=== PATIENT | female | born 1990 | race Caucasian/White ===

== ENCOUNTER 2020-08-23 17:45 | Inpatient (IN) | payer MEDICAID, SELFPAY ==
[2020-08-23 17:50] VITALS: BP 126/81; PULSE 128; RESP 14; TEMP 36.8; O2SAT 98; BMI 32.9
--- NOTE | 2020-08-23 18:06 | W.ED.PSYCH ---
HPI - Psych General: Chief Complaint: Psychiatric Symptoms Stated Complaint: SI Time Seen by Provider: 08/23/20 18:00 History of Present Illness: HPI Narrative: Patient has history of alcohol abuse and drinks on a daily basis fell off the wagon she said this Monday been drinking and doing some drugs. Said she tried to hang herself with a close line that was in her bedroom/laundry room yesterday then she said she is going to cut herself at night and try to bleed to no miller noticed on her neck even though she said this further occurred at. Says she is depressed she said life is just not going well family think finances everything she just feels down out and does not want living more children were taken away from her she had 2 kids to develop with her dad and she misses them MD complaint: suicidal ideation and feels depressed Onset (ago): day(s) Duration: constant and getting worse History of same: Yes Relieving factors: none Exacerbating factors: alcohol and drug use Context: recent alcohol abuse and recent drug abuse Associated psychiatric symptoms: depression and suicidal ideation Associated symptoms: Reports depression and suicidal ideation If self harm: admits thoughts of self harm, has plan and has acted on plan Review of Systems Const: Denies: fever(s), chills or body aches Eyes: Denies: change in vision or blurry vision ENMT: Denies: throat pain or nasal congestion Card: Denies: chest pain or dyspnea on exertion Resp: Denies: dyspnea, productive cough or non-productive cough GI: Denies: abdominal pain, nausea or vomiting Musc: Denies: extremity pain Skin/Breast: Denies: rash Neuro: Denies: headache(s) Psych: Reports: depression, hopelessness, suicidal ideation and other (Try to hang herself yesterday and said she was going to cut her throat but she did not) Carlos/Lymph: Denies: easy bruising PFSH ED PFSH: Family History (Updated 12/20/19 @ 12:03 by Emely Villafuerte RN) Father , 31 No problems noted. Social History (Updated 12/20/19 @ 12:04 by Emely Villafuerte RN) Smoking and tobacco status: current every day smoker cigarettes Alcohol intake: never Marital status: Single Current occupational status: employed Physical Exam Const: COMMON NORMALS: no acute distress, average body habitus and patient oriented x3 HENMT: COMMON NORMALS: normocephalic HEAD & SCALP: normal to inspection and normocephalic FACE & SINUS: normal facial exam Eye: COMMON NORMALS: conjunctivae normal GENERAL EYE: appearance normal, both eyes and all related structures CONJUNCTIVA: Yes conjunctivae normal Neck/C-Spine: COMMON NORMALS: no JVD Chest: COMMONS NORMALS: normal inspection of the chest Resp: COMMON NORMALS: normal respiratory effort and clear to auscultation bilaterally AUSCULTATION: clear to auscultation bilaterally Cardio: COMMON NORMALS: no JVD, regular rate and regular rhythm RATE: regular rate RHYTHM: regular rhythm GI: COMMON NORMALS: Normal to inspection, nondistended, normoactive bowel sounds present Extremity: COMMON NORMALS: normal to inspection and full ROM Neuro: COMMON NORMALS: patient oriented x3 Psych: COMMON NORMALS: mental status grossly normal, Normal thought process present and speech normal APPEARANCE: Yes grossly normal ATTITUDE: Yes calm SPEECH: Yes normal speech MOOD & AFFECT: Yes depressed mood THOUGHT PROCESS: Normal thought process present THOUGHT CONTENT: Yes Suicidality present MEMORY/COGNITION: Yes memory grossly intact INSIGHT: Good insight present (Psych) JUDGEMENT: Good judgement present (Psych) MDM - Psych MDM Narrative: Medical decision making narrative: Dr. Miller agrees to admit patient Lab Data: Labs: Lab Results 08/23/20 08/23/20 08/23/20 Range/Units 18:22 18:22 19:05 WBC 11.4 H (4.0-10.0) 10^3/ uL RBC 4.74 (4.1-5.3) 10^6/u L Hgb 14.9 (11.5-15.3) g/dL Hct 43.2 (37.0-47.0) % MCV 91.1 (81-99) fL MCH 31.4 (28.0-34.0) pg MCHC 34.5 (30.0-36.0) g/dL RDW 12.2 (12.1-15.1) % Plt Count 302 (130-400) 10^3/c mm MPV 9.2 (7.4-10.4) fL Neut % (Auto) 70.2 % Lymph % (Auto) 20.6 % [place] % (Auto) 7.3 % Eos % (Auto) 1.2 % Baso % (Auto) 0.4 % Neut # (Auto) 8.02 H (1.8-7.7) 10^3/u L Lymph # (Auto) 2.4 (0.8-4.8) 10^3/u L [place] # (Auto) 0.8 (0.2-0.9) 10^3/u L Eos # (Auto) 0.1 (0.0-0.8) 10^3/u L Baso # (Auto) 0.1 (0.0-0.1) 10^3/u L Nucleated RBC % (a uto) 0 % Nucleated RBCs # 0.0 /100WBC Sodium (136-145) mmol/L Potassium (3.5-5.1) mmol/L Chloride (98-107) mmol/L Carbon Dioxide (22-29) mmol/L Anion Gap (5-19) BUN (6-20) mg/dL Creatinine (0.5-0.9) mg/dL GFR Calculation (90-130) mL/min Glucose (65-115) mg/dL Calculated Osmolal ity (285-295) mOsm/k g Calcium (8.5-10.5) mg/dL Total Bilirubin (0.15-1.2) mg/dL AST (0-32) U/L ALT (0-33) U/L Alkaline Phosphata se (35-105) IU/L Total Protein (6.6-8.7) g/dL Albumin (3.5-5.2) g/dL Globulin (1.3-4.6) g/dL HCG, Qual Negative (Negative) Salicylates (3-10) mg/dL Urine Opiates Scre en Negative (Negative) ng/mL Acetaminophen (10-30) ug/mL Ur Barbiturates Sc reen Negative (Negative) ng/mL Ur Phencyclidine S crn Negative (Negative) ng/mL Ur Amphetamines Sc reen Negative (Negative) ng/mL U Benzodiazepines Scrn Negative (Negative) ng/mL Urine Cocaine Scre en Negative (Negative) ng/mL U Marijuana (THC) Screen Negative (Negative) ng/mL Ethyl Alcohol (0-10) mg/dL 08/23/20 Range/Units 19:05 WBC (4.0-10.0) 10^3/ uL RBC (4.1-5.3) 10^6/u L Hgb (11.5-15.3) g/dL Hct (37.0-47.0) % MCV (81-99) fL MCH (28.0-34.0) pg MCHC (30.0-36.0) g/dL RDW (12.1-15.1) % Plt Count (130-400) 10^3/c mm MPV (7.4-10.4) fL Neut % (Auto) % Lymph % (Auto) % [place] % (Auto) % Eos % (Auto) % Baso % (Auto) % Neut # (Auto) (1.8-7.7) 10^3/u L Lymph # (Auto) (0.8-4.8) 10^3/u L [place] # (Auto) (0.2-0.9) 10^3/u L Eos # (Auto) (0.0-0.8) 10^3/u L Baso # (Auto) (0.0-0.1) 10^3/u L Nucleated RBC % (a uto) % Nucleated RBCs # /100WBC Sodium 137 (136-145) mmol/L Potassium 3.3 L (3.5-5.1) mmol/L Chloride 100 (98-107) mmol/L Carbon Dioxide 24 (22-29) mmol/L Anion Gap 16.3 (5-19) BUN 9 (6-20) mg/dL Creatinine 0.6 (0.5-0.9) mg/dL GFR Calculation 118.2 (90-130) mL/min Glucose 107 (65-115) mg/dL Calculated Osmolal ity 283 L (285-295) mOsm/k g Calcium 9.1 (8.5-10.5) mg/dL Total Bilirubin 0.3 (0.15-1.2) mg/dL AST 13 (0-32) U/L ALT 24 (0-33) U/L Alkaline Phosphata se 84 (35-105) IU/L Total Protein 7.4 (6.6-8.7) g/dL Albumin 4.5 (3.5-5.2) g/dL Globulin 2.9 (1.3-4.6) g/dL HCG, Qual (Negative) Salicylates < 0.3 L (3-10) mg/dL Urine Opiates Scre en (Negative) ng/mL Acetaminophen < 5.0 L (10-30) ug/mL Ur Barbiturates Sc reen (Negative) ng/mL Ur Phencyclidine S crn (Negative) ng/mL Ur Amphetamines Sc reen (Negative) ng/mL U Benzodiazepines Scrn (Negative) ng/mL Urine Cocaine Scre en (Negative) ng/mL U Marijuana (THC) Screen (Negative) ng/mL Ethyl Alcohol < 10 (0-10) mg/dL Discharge Plan Discharge Patient Disposition: Admitted As Inpatient Admit Provider: Paul Miller Condition: Good Discharge Date/Time: 08/23/20 20:14 Coding Level of Care Code 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
[2020-08-23 18:30] LABS: HCG Qualitative Urine. Negative (Negative)
[2020-08-23 18:38] LABS: Amphetamines Screen Urine Negative (Negative); Barbiturates Screen Urine Negative (Negative); Benzodiazepines Screen Urine Negative (Negative); Cocaine Screen Urine Negative (Negative); Opiate Screen Urine Negative (Negative); PCP Screen Urine Negative (Negative); THC Screen Urine Negative (Negative)
[2020-08-23 19:09] LABS: Basophils # 0.1 10^3/uL (0.0-0.1); Basophils % 0.4 %; Eosinophils # 0.1 10^3/uL (0.0-0.8); Eosinophils % 1.2 %; Hematocrit 43.2 % (37.0-47.0); Hemoglobin 14.9 g/dL (11.5-15.3); Lymphocytes # 2.4 10^3/uL (0.8-4.8); Lymphocytes % 20.6 %; Mean Corpuscular HGB Conc 34.5 g/dL (30.0-36.0); Mean Corpuscular Hemoglobin 31.4 pg (28.0-34.0); Mean Corpuscular Volume 91.1 fL (81-99); Mean Platelet Volume 9.2 fL (7.4-10.4); Monocytes # 0.8 10^3/uL (0.2-0.9); Monocytes % 7.3 %; Neutrophils # 8.02 10^3/uL (1.8-7.7); Neutrophils % 70.2 %; Nucleated Red Blood Cells % 0 %; Platelet Count 302 10^3/cmm (130-400); Red Blood Count 4.74 10^6/uL (4.1-5.3); Red Cell Distribution Width 12.2 % (12.1-15.1); White Blood Count 11.4 10^3/uL (4.0-10.0)
[2020-08-23 19:29] LABS: Alanine Aminotransferase 24 U/L (0-33); Albumin Level 4.5 g/dL (3.5-5.2); Alkaline Phosphatase 84 IU/L (35-105); Anion Gap 16.3 (5-19); Aspartate Amino Transferase 13 U/L (0-32); Blood Urea Nitrogen 9 mg/dL (6-20); Calcium 9.1 mg/dL (8.5-10.5); Carbon Dioxide 24 mmol/L (22-29); Chloride 100 mmol/L (98-107); Creatinine Clr Calc Pharmacy 136.9796; Globulin 2.9 g/dL (1.3-4.6); Glomerular Filtration Rate 118.2 mL/min (90-130); Glucose 107 mg/dL (65-115); Osmolality Calculated 283 mOsm/kg (285-295); Potassium 3.3 mmol/L (3.5-5.1); Sodium 137 mmol/L (136-145); Total Bilirubin 0.3 mg/dL (0.15-1.2); Total Protein 7.4 g/dL (6.6-8.7)
[2020-08-23 19:34] LABS: Acetaminophen < 5.0 ug/mL (10-30); Alcohol Level < 10 mg/dL (0-10); Salicylate < 0.3 mg/dL (3-10)
[2020-08-23 19:41] VITALS: BP 102/71; PULSE 93; RESP 17; TEMP 36.8; O2SAT 100
[2020-08-23] MEDS: potassium chloride ER 10 mEq Tablet 20 MEQ PO (19:55)
[2020-08-23 20:12] VITALS: BP 122/76; PULSE 110; RESP 16; O2SAT 98
[2020-08-23] MEDS: hyDROXYzine 25 mg Capsule 50 MG PO (21:01)
[2020-08-23] MEDS: trazodone 50 mg Tablet PO (21:01)
--- NOTE | 2020-08-23 21:13 | PC.NURSE ---
Pt requested medications for sleep and anxiety. Trazodone and Vistaril given per request.
[2020-08-23 22:00] VITALS: TEMP 36.8
[2020-08-24 05:55] VITALS: BP 106/72; PULSE 84; RESP 17; TEMP 36.5; O2SAT 97
--- NOTE | 2020-08-24 07:33 | P.HP_ITS ---
Providers/Chief Complaint Admitting Physician: Paul Miller Primary Care Provider: Aba Butterfield MD Chief Complaint: ASKING TO GO TO NPU HPI NPU History of Present Illness Darling Sotelo is a 29 year old female with a history of alcohol abuse. She had previously been drinking on a daily basis but sobered up on her own. The problem is, with COVID, she was sitting in her apartment with nobody to talk to and that got pretty mtz after a while. She fell off the wagon and had been drinking and doing some drugs, although her urine shows no positives. She said she tried to hang herself on Monday with a clothes line that was in her laundry room and then she was going to cut herself in the neck and try to bleed to . No miller are noticed on her neck even though she said this occurred at home. She is depressed and said life is just not going well with her family and finances, just everything. She simply feels down out and does not want to go on living any more. Children were taken away from her although there is been no legal resolution of this (divorce). She had grown up with 2 stepsisters and her dad and she misses them. As for CAGE questions, she tried to cut down, there is no one to argue with about her drinking, about which she feels very guilty, which pretty much is considered positive for females, who only require one positive answer. 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 Review of Systems Narrative: Const: Denies: fever(s), chills or body aches Eyes: Denies: change in vision or blurry vision ENMT: Denies: throat pain or nasal congestion Card: Denies: chest pain or dyspnea on exertion Resp: Denies: dyspnea, productive cough or non-productive cough GI: Denies: abdominal pain, nausea or vomiting Musc: Denies: extremity pain Skin/Breast: Denies: rash Neuro: Denies: headache(s) Psych: Reports: depression, hopelessness, suicidal ideation and other (Try to hang herself yesterday and said she was going to cut her throat but she did not) Carlos/Lymph: Denies: easy bruising Meds NPU Home Medications Medication Instructions Recorded Confirmed Last Taken Type acetaminophen [Tylenol] 650 mg PO QID PRN 08/23/20 08/23/20 Unknown History diphenhydramine-acetaminophen 1 tab PO BEDTIME PRN 08/23/20 08/23/20 Unknown History [Tylenol PM Extra Strength] Allergies Allergy/AdvReac Type Severity Reaction Status Date / Time No Known Allergies Allergy Unverified 12/20/19 11:59 PFSH NPU PFSH: Medical History (Updated 08/24/20 @ 08:23 by Paul Miller) Major depression Family History (Updated 12/20/19 @ 12:03 by Emely Villafuerte RN) Father , 31 No problems noted. Social History (Updated 12/20/19 @ 12:04 by Emely Villafuerte RN) Smoking and tobacco status: current every day smoker cigarettes Alcohol intake: never Marital status: Single Current occupational status: employed Other Psychiatric History: Other Psychiatric History: The patient says she has had episodes with alcoholism and has thought about suicide but was never treated for depression nor has she ever been on any pharmacotherapy or hospitalized. Mental Status Exam MSE Comments: The patient is a 29-year-old female who presents at her stated age. Mood is sad and affect is dysphoric, often tearful. Thought processes, however, are integrated and free of any racing, blocking or looseness of association. There is no evidence of psychosis, such as but not limited to hallucinations, delusions or ideas of reference. Speech is of normal rate and volume, without dysarthria, aprosody or pressure. The patient acknowledges suicidal ideation but has no homicidal ideation, plan or intent. Cognitive functions are intact, with memory orientation and reason functioning well. Insight and judgment are actually better than one might expect. She has no denial about her drinking. Vitals/I&O/Wt Last Vital Signs Temp 97.7 F 08/24/20 05:55 Pulse 84 08/24/20 05:55 Resp 17 08/24/20 05:55 BP 106/72 08/24/20 05:55 Pulse Ox 97 08/24/20 05:55 Weight last 48 hrs Weight 180 lb Physical Exam Narrative: EXAM NARRATIVE: Const: no acute distress, average body habitus and patient oriented x3 HENMT: normal to inspection, normocephalic and atraumatic. Normal facial exam Eye: conjunctivae normal. PERRLA. EOMs intact. Neck/C-Spine: no JVD. Full range of motion and flexion Chest: normal inspection of the chest Resp: normal respiratory effort and clear to auscultation bilaterally Cardio: no JVD, regular rate and regular rhythm GI: Normal to inspection, non-distended, normoactive bowel sounds Extremity: normal to inspection and full ROM Neuro: Patient oriented x3. No cerebellar, sensory or motor deficit noted. Data NPU : 08/23/20 19:05 08/23/20 19:05 A&P Assessment and plan (1) Alcoholism: I have staffed the patient with nursing and discharge planning staff. Referral to rehab will be undertaken. Status: Acute (2) Major depression: Pharmacotherapy will be invoked. Millieu therapy and discharge planning will also be undertaken Status: Acute Involuntary Hold Information 96 Hour Hold: 96 Hour Involuntary Admission: No Attestations NPU Medical Necessity Statement*: I anticipate 5-7 midnights additional stay. Time Spent in Patient Care: Greater than 35 minutes (>than 50% of time spent in counselling and/or direct pt care on unit) . Coding Level of Care Code Acute Historic Preservationist for Rebecca Krishnan Diagnoses Alcoholism F10.20 Major depression F32.9
[2020-08-24] MEDS: nicotine 21 mg Patch 1 PATCH TRANSDERMA (07:53)
--- NOTE | 2020-08-24 13:35 | NPU.GN ---
Darling spoke up when asked to but remained quiet throughout the rest of the session.
[2020-08-24 14:00] VITALS: BP 109/73; PULSE 88; RESP 18; TEMP 36.6; O2SAT 96
--- NOTE | 2020-08-24 15:24 | PC.RESP ---
Smoking Cessation packet sent to patient.
[2020-08-24] MEDS: blistex lip oint 7 gm Tube 1 APPLIC TOPICAL (17:46)
[2020-08-24 19:41] VITALS: BP 101/71; PULSE 94; RESP 16; TEMP 36.9; O2SAT 91
[2020-08-24] MEDS: trazodone 50 mg Tablet PO (19:50)
[2020-08-24] MEDS: hyDROXYzine 25 mg Capsule 50 MG PO (19:50)
[2020-08-25 05:29] VITALS: BP 105/71; PULSE 86; RESP 16; TEMP 36.4; O2SAT 96
[2020-08-25] MEDS: nicotine 21 mg Patch 1 PATCH TRANSDERMA (13:36)
--- NOTE | 2020-08-25 13:45 | NPU.GN ---
Darling was rather quiet in the beginning but spoke up towards the middle of the session. Each group member was encouraged to state one thing that they are grateful for today. Darling and Erick both stated that they can now see a light at the end of the tunnel that they couldn't before. Darling talked about music being a good way to relax on a bad day and something to bring her mood up on a bad day.
[2020-08-25 14:00] VITALS: BP 94/67; PULSE 96; RESP 20; TEMP 36.4; O2SAT 95
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
--- NOTE | 2020-08-25 19:43 | PC.NURSE ---
Patient up in the dayroom, has been on the phone with family, and is calm. She asked for medication for sleep and anxiety this evening. Nurse Serrano notified
[2020-08-25] MEDS: trazodone 50 mg Tablet PO (20:26)
[2020-08-25] MEDS: fluoxetine 20 mg Capsule PO (20:26)
[2020-08-25] MEDS: hyDROXYzine 25 mg Capsule 50 MG PO (20:27)
[2020-08-25 22:00] VITALS: BP 102/70; PULSE 90; RESP 16; TEMP 37; O2SAT 98
[2020-08-25] MEDS: OLANZapine 5 mg ODT PO (22:27)
[2020-08-26 05:44] VITALS: BP 105/72; PULSE 80; RESP 16; TEMP 36.4; O2SAT 99
[2020-08-26] MEDS: fluoxetine 20 mg Capsule PO (08:01)
[2020-08-26 08:26] VITALS: BP 105/72; PULSE 80; RESP 16; TEMP 36.4; O2SAT 99
--- NOTE | 2020-08-26 08:31 | PM.NDC ---
Diagnoses at Discharge Discharge Diagnosis (1) Major depression: Status: Chronic Problem details: Patient felt hopeless and suicidal. 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 Reason for Visit Reason for Visit: ASKING TO GO TO U Hospital Course Hospital Course Day #2 I have begun the disposition planning on this patient. We discussed Prozac as an option, to which she agrees after hearing the risks benefits and alternatives to it. Day #3 the patient has made significant progress and wants to reenter recovery and make a ride further through this world. Day #4 the patient is scheduled for transfer to an inpatient rehab program. She will leave on Prozac 20 mg p.o. daily. Involuntary Hold Information 96 Hour Hold: 96 Hour Involuntary Admission: No Mental Status Exam MSE Comments: The patient is a 29-year-old female who presents at her stated age. Mood is much brighter and affect is appropriate and no longer tearful. She is, however, fretful as she is about to be transferred to inpatient rehab. Thought processes remain integrated and free of any racing, blocking or looseness of association. There is no evidence of psychosis such as but not limited to hallucinations, delusions, ideas of reference, etc. Speech is of normal rate and volume, without dysarthria, aprosody or pressure. The patient today denies suicidal and homicidal ideation, plan or intent. Cognitive functions are intact, with memory, orientation and reason functioning well. Insight and judgment are intact. She has no denial about her drinking. She denies any suicidal or homicidal ideation, plan or intent. Discharge Data Vitals: Last Vital Signs Temp 97.5 F L 08/26/20 08:26 Pulse 80 08/26/20 08:26 Resp 16 08/26/20 08:26 BP 105/72 08/26/20 08:26 Pulse Ox 99 08/26/20 08:26 Discharge Plan Discharge Patient Disposition: Home Condition: Stable Prescriptions: New fluoxetine 20 mg Capsule 20 mg PO DAILY 30 Days Qty: 30 RF: 1 Discontinued acetaminophen [Tylenol] 325 mg Tablet 650 mg PO QID PRN (Reason: Pain) RF: 0 diphenhydramine-acetaminophen [Tylenol PM Extra Strength] 25-500 mg Tablet 1 tab PO BEDTIME PRN (Reason: Sleep) RF: 0 Discharge Orders: Discharge Order (Routine); Ordered 08/26/20 Ordered By: Paul Miller Referrals: [facility] [place] [facility] [Outside] - 1-3 days (to start services you will need to call and ask for outpatient mental health services. ) [facility] [Outside] (you will go the same day you are released from hospital. ) Discharge Diet: Usual diet Discharge Activity: Resume usual activity Patient Instructions: Fluoxetine (By mouth) Activity Restrictions/Additional Instructions: to apply for medicaid online ... https://dss.mo.gov/fsd/formsmanual/pdf/[email or web address] Discharge Attestations NPU Time Spent in Discharge Care*: greater than 30 min Specific Discharge Activities: Specific discharge activities: educating patient, discussing with pcp/other providers, discussing with special education case manager/social workers/dc planners, documenting/other paperwork and evaluating patient/reviewing data Other discharge activites (optional): Risk Assessment. 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
[2020-08-26 09:02] VITALS: BP 105/72; PULSE 80; RESP 16; TEMP 36.4; O2SAT 99
== END 2020-08-26 09:36 | disposition home or self-care (01) | DRG 881 ==
LOC: ER 18:00 → NP 19:47
PROVIDERS: Emergency Medicine; PCP Urology
DX: F32.9 Major depressive disorder, single episode, unspecified (principal); R45.851 Suicidal ideations; F10.20 Alcohol dependence, uncomplicated; F17.210 Nicotine dependence, cigarettes, uncomplicated
CPT/HCPCS: 12345; 80053; 80306; 80307; 81025; 85025; 99284

== ENCOUNTER → 2020-12-08 14:02 | Outpatient (BNVA) | payer MEDICAID, SELFPAY | PROVIDERS: PCP Urology; Visit Provider Nurse Practitioner Psychiatric/Mental Health | DX: F43.12 Post-traumatic stress disorder, chronic (principal); F33.9 Major depressive disorder, recurrent, unspecified; F10.21 Alcohol dependence, in remission | CPT/HCPCS: 99214 ==

== ENCOUNTER → 2021-01-21 09:03 | Outpatient (BNVA) | payer MEDICAID, SELFPAY | PROVIDERS: PCP Urology; Visit Provider Nurse Practitioner Psychiatric/Mental Health | DX: F43.12 Post-traumatic stress disorder, chronic (principal); F33.9 Major depressive disorder, recurrent, unspecified; F10.21 Alcohol dependence, in remission | CPT/HCPCS: 99213 ==

== ENCOUNTER → 2021-06-30 07:49 | Outpatient (BNVA) | payer MEDICAID, SELFPAY | PROVIDERS: PCP Urology; Visit Provider Social Worker | DX: F43.12 Post-traumatic stress disorder, chronic (principal); F33.9 Major depressive disorder, recurrent, unspecified; F10.21 Alcohol dependence, in remission | CPT/HCPCS: 90834 ==

== ENCOUNTER → 2021-07-12 08:33 | Outpatient (BNVA) | payer MEDICAID, SELFPAY | PROVIDERS: PCP Urology; Visit Provider Nurse Practitioner Psychiatric/Mental Health | DX: F43.12 Post-traumatic stress disorder, chronic (principal); F33.9 Major depressive disorder, recurrent, unspecified; F10.21 Alcohol dependence, in remission | CPT/HCPCS: 99214 ==

== ENCOUNTER → 2021-07-16 07:43 | Outpatient (BNVA) | payer MEDICAID, SELFPAY | PROVIDERS: PCP Urology; Visit Provider Social Worker | DX: F43.12 Post-traumatic stress disorder, chronic (principal); F33.9 Major depressive disorder, recurrent, unspecified; F10.21 Alcohol dependence, in remission | CPT/HCPCS: 90834 ==

== ENCOUNTER → 2021-08-09 07:48 | Outpatient (BNVA) | payer MEDICAID, SELFPAY | PROVIDERS: PCP Urology; Visit Provider Nurse Practitioner Psychiatric/Mental Health | DX: F43.12 Post-traumatic stress disorder, chronic (principal); F33.9 Major depressive disorder, recurrent, unspecified; F10.21 Alcohol dependence, in remission | CPT/HCPCS: 99213 ==

== ENCOUNTER → 2021-08-12 07:24 | Outpatient (BNVA) | payer MEDICAID, SELFPAY | PROVIDERS: PCP Urology; Visit Provider Social Worker | DX: F43.12 Post-traumatic stress disorder, chronic (principal); F33.9 Major depressive disorder, recurrent, unspecified; F10.21 Alcohol dependence, in remission | CPT/HCPCS: 90834 ==

== ENCOUNTER → 2021-09-02 07:13 | Outpatient (BNVA) | payer MEDICAID, SELFPAY | PROVIDERS: PCP Urology; Visit Provider Nurse Practitioner Psychiatric/Mental Health | DX: F43.12 Post-traumatic stress disorder, chronic (principal); F33.9 Major depressive disorder, recurrent, unspecified; F10.21 Alcohol dependence, in remission | CPT/HCPCS: 90834; 99214 ==

== ENCOUNTER → 2021-09-07 10:44 | Outpatient (BNVA) | payer MEDICAID, SELFPAY | PROVIDERS: PCP Urology; Visit Provider Nurse Practitioner Psychiatric/Mental Health | DX: F43.12 Post-traumatic stress disorder, chronic (principal); F33.9 Major depressive disorder, recurrent, unspecified; F10.21 Alcohol dependence, in remission | CPT/HCPCS: 99213 ==

== ENCOUNTER → 2021-09-09 08:29 | Outpatient (BNVA) | payer MEDICAID, SELFPAY | PROVIDERS: PCP Urology; Visit Provider Social Worker | DX: F43.12 Post-traumatic stress disorder, chronic (principal); F33.9 Major depressive disorder, recurrent, unspecified; F10.21 Alcohol dependence, in remission | CPT/HCPCS: 90834 ==